=== PATIENT | male | born 1955 | race Caucasian/White ===

== ENCOUNTER 2021-02-25 17:56 | Emergency (ER) | payer OTHER, SELFPAY ==
[2021-02-25 17:58] VITALS: BP 180/72; PULSE 71; RESP 16; TEMP 37; O2SAT 94; BMI 36.2
--- NOTE | 2021-02-25 18:05 | ECG_ITS ---
APPROVED REPORT Exam: Resting ECG HR:71 bpm ECG Measurements Heart Rate 71 AXES WV 148 P 44 QRSd 92 QRS 21 QT 416 T 19 QTc 452 Conclusion Normal sinus rhythm Normal ECG Electronically signed by : Leonel Dias, 02/27/2021 08:54:05
--- NOTE | 2021-02-25 18:10 | HMH.EDGENADL ---
ED Disposition Clinical Impression: Thoracic back pain Qualifiers: Chronicity: acute Back pain laterality: midline Qualified Code(s): M54.6 - Pain in thoracic spine Disposition: Home, Self-Care Condition on Discharge: Fair Instructions: DI for Thoracic Back Pain Additional Instructions: Rest. Percocet for pain. Prednisone as prescribed. Use MiraLAX for constipation. Follow-up with primary care provider next week. Additional instructions for BACK PAIN: See your physician as soon as possible for further evaluation. Return immediately if back pain becomes intolerable, or if fever, numbness or weakness of your legs, loss of control of your bowels or bladder. Prescriptions: Oxycodone HCl/Acetaminophen [Percocet 5/325mg tablet] 1 tab PO Q6HP PRN #10 tab PRN Reason: Moderate To Severe Pain Prescription Printed polyethylene glycoL 3350 [Miralax 17gm Packet] 17 gm PO DAILY #5 packet Prescription Printed predniSONE [Prednisone 20mg Tab] 20 mg PO BID #10 tab Prescription Printed Referrals: Provider,Referral, [Primary Care Provider] - - Critical Care Critical Care Time: No Attestation: On 02/25/21, the high probability of a clinically significant, sudden or life threatening deterioration of the following system(s) required my full and direct attention, intervention and personal management. The time I documented below is in addition to time spent performing reported procedures but includes the following listed in this critical care notation. Medical Decision Making - Hrei Inquiry Pt receiving controlled substance: Yes Heri was queried for this patient: Yes Risks and benefits of using a controlled substance: were discussed with pt by me Vital Signs: 02/25/21 17:58 02/25/21 19:31 Temperature 98.6 F Temperature Source Oral Pulse Rate 58 L Pulse Rate [Right] 71 Respiratory Rate 16 20 Blood Pressure 159/70 H Blood Pressure [Right Arm] 180/72 H Blood Pressure Mean 99 Blood Pressure Mean [Right Arm] 108 Blood Pressure Source [Right Arm] Automatic Cuff Blood Pressure Position [Right Arm] Sitting 02 Sat by Pulse Oximetry 94 L 92 L Oxygen Delivery Method Room Air Room Air - Lab Data Lab Results 02/25/21 18:15: WBC 13.2 H, RBC 4.85, Hgb 14.8, Hct 42.4, MCV 87.3, MCH 30.5, MCHC 34.9, RDW 12.9, Plt Count 269, MPV 9.0, Neut % (Auto) 67.1, Lymph % (Auto) 20.1, [place] % (Auto) 8.6, Eos % (Auto) 3.5, Baso % (Auto) 0.7, Neut # (Auto) 8.8 H, Lymph # (Auto) 2.6, [place] # (Auto) 1.1 H, Eos # (Auto) 0.5 H, Baso # (Auto) 0.1 02/25/21 18:15: Sodium 138, Potassium 3.8, Chloride 102, Carbon Dioxide 27, Anion Gap 12.8, BUN 17, Creatinine 1.00, Estimated Creat Clear 123, Estimated GFR 75, Est GFR ( Amer) 91, Glucose 128 H, Calcium 9.6, Total Bilirubin 0.5, AST 27, ALT 27, Alkaline Phosphatase 70, Troponin I < 0.01, Total Protein 7.3, Albumin 4.4, Globulin 2.9, Albumin/Globulin Ratio 1.5 02/25/21 18:15: Lipase 342 H Result diagrams: 02/25/21 18:15 02/25/21 18:15 Orders (Tests/Meds): ED MEDICATIONS Generic Name Dose Route Start Last Admin Trade Name Freq PRN Reason Stop Dose Admin Hydromorphone HCl 1 mg 02/25/21 19:56 Hydromorphone 2mg/Ml Syringe IV 02/25/21 19:57 ONCE ONE Discontinued Medications Generic Name Dose Route Start Last Admin Trade Name Freq PRN Reason Stop Dose Admin Morphine Sulfate 4 mg 02/25/21 18:28 02/25/21 18:36 Morphine 4mg/Ml Syringe IV 02/25/21 18:29 4 mg ONCE ONE Administration Ondansetron HCl 4 mg 02/25/21 18:28 02/25/21 18:36 Ondansetron 4mg/2ml Vial IV 02/25/21 18:29 4 mg ONCE ONE Administration ORDERS Category Date Time Status Troponin I Q3H Lab 02/25/21 21:30 Ordered Troponin I Q3H Lab 02/26/21 00:30 Ordered - ECG Data Tracing #1 EKG interpreted by Julius Edwards MD: Rhythm: sinus Rate: 71 [place]: normal Ectopy: none Conduction: normal ST Segment Changes: none T Wave Changes: none
--- NOTE | 2021-02-25 18:25 | CT_ITS ---
PROCEDURE INFORMATION: Exam: CT Thoracic Spine Without Contrast Exam date and time: 02/25/2021 6:25 PM Age: 65 years old Clinical indication: Pain in thoracic spine; Other: --; Patient HX: Back pain for 4 days with injury TECHNIQUE: Imaging protocol: Computed tomography images of the thoracic spine without contrast. Radiation optimization: All CT scans at this facility use at least one of these dose optimization techniques: automated exposure control; mA and/or kV adjustment per patient size (includes targeted exams where dose is matched to clinical indication); or iterative reconstruction. COMPARISON: No relevant prior studies available. FINDINGS: Vertebrae: No acute fracture or malalignment. Discs/Spinal canal/Neural foramina: C5-C6 severe degenerative disc disease, with disc space loss, endplate sclerosis, irregularity, and osteophyte formation. Multilevel thoracic spine degenerative disc disease, manifest by mild disc space narrowing, vacuum disc phenomenon, and osteophyte formation. Soft tissues: Unremarkable. Vasculature: Atherosclerotic vascular disease. IMPRESSION: No acute fracture or malalignment.
--- NOTE | 2021-02-25 18:27 | XR_ITS ---
PROCEDURE INFORMATION: Exam: XR Chest Exam date and time: 02/25/2021 6:27 PM Age: 65 years old Clinical indication: Other: Indegestion; Patient HX: Indigestion, smoker, no SX; Additional info: Pain TECHNIQUE: Imaging protocol: XR of the chest. Views: 2 views. COMPARISON: CR CXR2V XR chest 2V 09/24/2018 8:03 PM FINDINGS: Lungs: Lungs are hyperexpanded, compatible chronic obstructive pulmonary physiologic changes. Pleural spaces: Unremarkable. No pleural effusion. No pneumothorax. Heart/Mediastinum: Normal. Bones/joints: Multilevel thoracic spine degenerative disc space narrowing and osteophyte formation. IMPRESSION: No acute cardiopulmonary abnormality.
[2021-02-25 18:36] LABS: Basophils # 0.1 K/mm3 (0-0.2); Basophils % 0.7 % (0.1-2.0); Eosinophils # 0.5 K/mm3 (0.0-0.4); Eosinophils % 3.5 % (0.1-12.0); Hematocrit 42.4 % (42.0-52.0); Hemoglobin 14.8 g/dL (14.1-18.0); Lymphocytes # 2.6 K/mm3 (0.7-4.5); Lymphocytes % 20.1 % (10-50); Mean Corpuscular HGB Conc 34.9 g/dL (31.8-35.4); Mean Corpuscular Hemoglobin 30.5 pg (27.0-31.2); Mean Corpuscular Volume 87.3 fl (80-94); Monocytes # 1.1 K/mm3 (0.1-1.0); Monocytes % 8.6 % (1.7-9.3); Neutrophils # 8.8 K/mm3 (1.8-7.8); Neutrophils % 67.1 % (37.0-80.0); Platelet Count 269 K/mm3 (142-424); Red Blood Count 4.85 M/mm3 (4.60-6.20); Red Cell Distribution Width 12.9 % (11.5-17.5); White Blood Count 13.2 K/mm3 (4.8-10.8)
[2021-02-25 18:37] LABS: Chloride 102 mmol/L (98-107); Sodium 138 mmol/L (136-145)
[2021-02-25 18:38] LABS: Potassium 3.8 mmoL/L (3.5-5.1)
[2021-02-25 18:40] LABS: Alanine Aminotransferase 27 U/L (12-78); Albumin Level 4.4 g/dl (3.5-5.0); Albumin/Globulin Ratio 1.5 (1.1-1.8); Alkaline Phosphatase 70 U/L (38-126); Anion Gap 12.8 mEq/L (5-15); Aspartate Amino Transferase 27 U/L (17-59); Bilirubin,Total 0.5 mg/dl (0.2-1.3); Blood Urea Nitrogen 17 mg/dl (9-20); Carbon Dioxide 27 mmol/L (22.0-30.0); Creatinine Clearance Estimated 123 mL/min (50-200); Estimated Glomerular Filt Rate 75 ml/min (>60); GFR (African American) 91 ML/MIN (>60); Globulin 2.9 g/dL (1.3-3.2); Lipase 342 U/L (23-300); Total Protein,Serum 7.3 g/dl (6.3-8.2)
[2021-02-25 18:41] LABS: Calcium 9.6 mg/dl (8.4-10.2); Glucose 128 mg/dl (74-100)
--- NOTE | 2021-02-25 18:46 | PC.NURSE ---
PT GONE TO CT
--- NOTE | 2021-02-25 18:56 | CT_ITS ---
PROCEDURE INFORMATION: Exam: CT Abdomen And Pelvis Without Contrast Exam date and time: 02/25/2021 6:56 PM Age: 65 years old Clinical indication: Abnormal findings; Abnormal lab test; Elevated lipase; Prior surgery; Surgery date: 6+ months; Surgery type: Gallbladder; Patient HX: Elevated lipase TECHNIQUE: Imaging protocol: Computed tomography of the abdomen and pelvis without contrast. Radiation optimization: All CT scans at this facility use at least one of these dose optimization techniques: automated exposure control; mA and/or kV adjustment per patient size (includes targeted exams where dose is matched to clinical indication); or iterative reconstruction. COMPARISON: No relevant prior studies available. FINDINGS: Liver: Mild hepatomegaly. Gallbladder and bile ducts: Gallbladder is surgically absent. Pancreas: Normal. Spleen: Normal. Adrenal glands: Normal. No mass. Kidneys and ureters: Simple left posterior midpole renal cyst. Left nephrolithiasis. Stomach and bowel: Colonic diverticulosis. Moderate amount of stool throughout the colon, suggesting constipation. No obstruction. Appendix: No evidence of appendicitis. Intraperitoneal space: Unremarkable. No free air. No significant fluid collection. Vasculature: Unremarkable. No abdominal aortic aneurysm. Lymph nodes: Unremarkable. No enlarged lymph nodes. Urinary bladder: Unremarkable as visualized. Reproductive: Unremarkable as visualized. Bones/joints: Mild degenerative changes of the hips and sacroiliac joints. Multilevel thoracolumbar spine degenerative disc space narrowing and osteophyte formation. Soft tissues: Normal. IMPRESSION: Moderate amount of stool throughout the colon, suggesting constipation. No obstruction. COMMENTS: Consistent with the [employer]'s Incidental Findings Committee white paper (J Am Gayla Radiol 2018): Any incidental renal lesion less than 1 cm or classified as too small to characterize, or any incidental cystic renal lesion characterized as simple-appearing, is likely benign. No follow-up imaging is recommended for these lesions per consensus recommendations based on imaging criteria.
--- NOTE | 2021-02-25 18:59 | PC.NURSE ---
Rad called and advised pt did not want the CT scan with contrast but was willing to have the CT without. Notified
[2021-02-25 19:01] LABS: Troponin I < 0.01 ng/ml (0.00-0.034)
[2021-02-25 19:31] VITALS: BP 159/70; PULSE 58; RESP 20; O2SAT 92
[2021-02-25 20:01] VITALS: BP 158/80; PULSE 54; RESP 15; TEMP 36.6; O2SAT 98
--- NOTE | 2021-02-26 10:08 | PC.NURSE ---
[facility] CALLED ASKING FOR A ESCRIBE RX TO BE RESENT TO THEM DUE TO THE ORIGINAL SCRIPT BEING PRINTED OFF AND SIGNED BY [facility] ER DOCTOR JENNY. THEY STATED THEY CAN NO LONGER TAKE PRINTED IN HAND NARCOTIC RX AND IT HAS TO BE ESCRIBED. SPOKE WITH GERRI CASE, AND SHE IS LOOKING INTO THIS SITUATION.
== END 2021-02-25 20:06 | disposition home or self-care (01) ==
PROVIDERS: Emergency Provider Emergency Medicine
DX: M54.6 Pain in thoracic spine (principal); I10 Essential (primary) hypertension; F17.210 Nicotine dependence, cigarettes, uncomplicated
CPT/HCPCS: 71046; 72128; 74176; 80053; 83690; 84484; 85025; 93005; 96374; 96375; 99282; J2405

== ENCOUNTER 2022-11-06 11:35 | Emergency (ER) | payer OTHER, SELFPAY ==
[2022-11-06] VITALS (9 sets, daily range): BP systolic 145–209; BP diastolic 66–93; PULSE 48–59; RESP 14–19; TEMP 36.8–37; O2SAT 93–99; BMI 31.9
[2022-11-06 12:06] LABS: Basophils # 0.1 K/mm3 (0-0.2); Basophils % 0.9 % (0.1-2.0); Eosinophils # 0.3 K/mm3 (0.0-0.4); Eosinophils % 2.3 % (0.1-12.0); Hemoglobin 15.5 g/dL (14.1-18.0); Lymphocytes # 1.7 K/mm3 (0.7-4.5); Lymphocytes % 13.6 % (10-50); Mean Corpuscular HGB Conc 34.5 g/dL (31.8-35.4); Mean Corpuscular Hemoglobin 31.2 pg (27.0-31.2); Mean Corpuscular Volume 90.4 fl (80-94); Mean Platelet Volume 9.3 fl (7.4-10.4); Monocytes # 0.7 K/mm3 (0.1-1.0); Monocytes % 5.7 % (1.7-9.3); Neutrophils # 9.9 K/mm3 (1.8-7.8); Neutrophils % 77.6 % (37.0-80.0); Platelet Count 262 K/mm3 (142-424); Red Blood Count 4.98 M/mm3 (4.60-6.20); Red Cell Distribution Width 13.6 % (11.5-17.5); White Blood Count 12.8 K/mm3 (4.8-10.8)
--- NOTE | 2022-11-06 12:08 | ECG_ITS ---
APPROVED REPORT Exam: Resting ECG HR:53 bpm ECG Measurements Heart Rate 53 AXES [place] 146 P 34 QRSd 96 QRS 71 QT 472 T 31 QTc 455 Conclusion SINUS BRADYCARDIA BORDERLINE ECG UNCONFIRMED REPORT Electronically signed by : Leonel Dias MD 11/06/2022 19:45:17
[2022-11-06 12:11] LABS: Alanine Aminotransferase 31 U/L (12-78); Albumin Level 4.2 g/dl (3.5-5.0); Albumin/Globulin Ratio 1.6 (1.1-1.8); Alkaline Phosphatase 53 U/L (38-126); Anion Gap 6.7 mEq/L (5-15); Aspartate Amino Transferase 33 U/L (17-59); Bilirubin,Total 0.9 mg/dl (0.2-1.3); Blood Urea Nitrogen 13 mg/dl (9-20); Calcium 8.7 mg/dl (8.4-10.2); Carbon Dioxide 32 mmol/L (22.0-30.0); Chloride 106 mmol/L (98-107); Creatinine Clearance Estimated 111 mL/min (50-200); Estimated Glomerular Filt Rate 75 ml/min (>60); GFR (African American) 90 ML/MIN (>60); Globulin 2.7 g/dL (1.3-3.2); Glucose 137 mg/dl (74-100); Potassium 3.7 mmoL/L (3.5-5.1); Sodium 141 mmol/L (136-145); Total Protein,Serum 6.9 g/dl (6.3-8.2)
[2022-11-06 12:25] LABS: Troponin I < 0.01 ng/ml (0.00-0.034)
--- NOTE | 2022-11-06 12:36 | HMH.EDGENADL ---
Discharge Plan Disposition Patient Disposition: Home, Self-Care Condition: Good Prescriptions Prescriptions: No Action polyethylene glycol 3350 17 GM powder in packet 17 gm PO DAILY Qty: 5 0RF prednisone 20 MG tablet 20 mg PO BID Qty: 10 0RF oxycodone-acetaminophen 1 EACH tablet 1 tab PO Q6HP PRN (Reason: Moderate To Severe Pain) Qty: 10 0RF Referrals Follow up/Referrals: Provider,Referral, MD [Primary Care Provider] - See instructions Activity Restrictions/Add. Instructions Additional Instructions/Restrictions: You were evaluated in the emergency department today. At this time, we recommend continuing to take your medications at home as prescribed. Please take your hydrochlorothiazide every day as prescribed. Call your primary care provider to let them know that you were seen here. Let them know about your blood pressure readings, as they may want to make further medication adjustments. Return to the emergency department for any new or worsening symptoms or for systolic blood pressures that sustained over 200. Clinical Impressions Clinical Impression: Accelerated hypertension Instructions Patient Instructions: DI for High Blood Pressure Discharge ED Provider: Fanny Hughes General Adult HPI General Chief complaint: Recheck/Abnormal Lab/Rx Stated complaint: High BP Time Seen by Provider: 11/06/22 11:42 Mode of Arrival: Ambulatory Source of Information: Patient Limitations: No Limitations Description of Symptoms (Recalled from ER Triage Doc. by RN): PT STATES HIS BLOOD PRESSURE HAS BEEN ELEVATED FOR 3 DAYS, STATES HE HAS BEEN UNDER INCREASED STRESS AND HAS BEEN FEELING MORE TIRED AND RUNDOWN THAN NORMAL History of Present Illness HPI narrative: This patient is a 67-year-old male with a history of accelerated hypertension presented to the emergency department for evaluation with concern for high blood pressure readings at home. He states that he first noticed it a few days ago, so he has been taking it regularly to keep track of it. He states that today, he had a pressure of 225 systolic at home, so he decided to come to the emergency department for evaluation. He denies any associated symptoms, but he notes that his right upper extremity was numb when he woke up today. He states that he believes that he slept on it wrong, as the symptoms resolved after he got up. He takes hydrochlorothiazide 25 mg daily as well as metoprolol 50 mg twice daily and losartan 100 mg daily. He states that he has been compliant with these. Today, he had to take his clonidine 0.1 mg as needed medication twice. He denies any headaches, vision changes, unilateral weakness, chest pain, back pain, abdominal pain, or other concerns. [facility] [place] Related Data Previous Rx's Medication Instructions Recorded oxycodone-acetaminophen 5 mg-325 1 tab PO Q6HP PRN Moderate To 02/25/21 mg tablet Severe Pain #10 tabs polyethylene glycol 3350 17 gram 17 gm PO DAILY #5 packets 02/25/21 oral powder packet prednisone 20 mg tablet 20 mg PO BID #10 tabs 02/25/21 Allergies Allergy/AdvReac Type Severity Reaction Status Date / Time INGREDIENT: NO KNOWN - NO Allergy Unknown Uncoded 09/11/17 15:07 KNOWN DRUG [facility]ERGY [facility] Disclaimer: The information contained in this section may have been updated after the patient was seen, as this information can be updated by other users. Social History Smoking Status: Current every day smoker alcohol intake: never current occupational status: retired Travel in the last 8 weeks: None ROS Obtained: Yes All systems reviewed & no additional complaints except as documented 14 point review of systems obtained and negative except as mentioned in HPI. Physical Exam General General appearance: alert and in no apparent distress Head Head exam: atraumatic and normocephalic Eye Eye exam: Present norm
--- NOTE | 2022-11-06 13:40 | PC.NURSE ---
Rounded on patient, SO at BS. no other needs at this time. Aware that we are waiting on results. Call light within reach
--- NOTE | 2022-11-06 14:59 | PC.NURSE ---
Rounded on patient, patient up to restroom without complications. Pt also given a vikas grace. SO at BS, no other needs at this time. Aware that they are waiting on 2nd troponin to be drawn.
--- NOTE | 2022-11-06 15:11 | PC.NURSE ---
2nd Troponin sent to lab. Pt hooked back up to monitor. Call light within reach, lights turned out, SO at BS
--- NOTE | 2022-11-06 15:13 | PC.NURSE ---
ROUNDED ON PT. RESTING IN BED. AT BEDSIDE. CALL LIGHT WITHIN REACH. NO QUESTIONS OR CONCERNS VOICED AT THIS TIME.
[2022-11-06 15:52] LABS: Troponin I < 0.01 ng/ml (0.00-0.034)
== END 2022-11-06 16:13 | disposition home or self-care (01) ==
PROVIDERS: Emergency Provider Emergency Medicine
DX: I16.0 Hypertensive urgency (principal); I10 Essential (primary) hypertension; F17.210 Nicotine dependence, cigarettes, uncomplicated
CPT/HCPCS: 80053; 84484; 85025; 93005; 99285

== ENCOUNTER 2022-11-09 16:52 | Emergency (ER) | payer OTHER, SELFPAY ==
[2022-11-09] VITALS (12 sets, daily range): BP systolic 147–216; BP diastolic 72–105; PULSE 56–67; RESP 17–19; TEMP 36.6–36.9; O2SAT 96–99; BMI 31.9
--- NOTE | 2022-11-09 17:09 | XR_ITS ---
PROCEDURE INFORMATION: Exam: XR Chest Exam date and time: 11/09/2022 5:37 PM Age: 67 years old Clinical indication: Other: High blood pressure TECHNIQUE: Imaging protocol: Radiologic exam of the chest. Views: 1 view. COMPARISON: CR XR CHEST 2V 02/25/2021 6:35 PM FINDINGS: Lungs: Unremarkable. No consolidation. Pleural spaces: Unremarkable. No pleural effusion. No pneumothorax. Heart/Mediastinum: Unremarkable. No cardiomegaly. Bones/joints: Unremarkable. IMPRESSION: No acute findings.
--- NOTE | 2022-11-09 17:17 | ECG_ITS ---
APPROVED REPORT Exam: Resting ECG HR:54 bpm ECG Measurements Heart Rate 54 AXES CO 160 P 39 QRSd 98 QRS -3 QT 449 T 26 QTc 435 Conclusion SINUS BRADYCARDIA BORDERLINE ECG UNCONFIRMED REPORT Electronically signed by : Leonel Dias MD 11/10/2022 08:57:06
[2022-11-09 17:45] LABS: Chloride 97 mmol/L (98-107); Potassium 3.7 mmoL/L (3.5-5.1); Sodium 141 mmol/L (136-145)
[2022-11-09 17:48] LABS: Alanine Aminotransferase 30 U/L (12-78); Albumin Level 4.8 g/dl (3.5-5.0); Albumin/Globulin Ratio 1.3 (1.1-1.8); Alkaline Phosphatase 60 U/L (38-126); Anion Gap 14.7 mEq/L (5-15); Aspartate Amino Transferase 32 U/L (17-59); Bilirubin,Total 0.7 mg/dl (0.2-1.3); Blood Urea Nitrogen 22 mg/dl (9-20); Calcium 10.4 mg/dl (8.4-10.2); Carbon Dioxide 33 mmol/L (22.0-30.0); Creatinine Clearance Estimated 93 mL/min (50-200); Estimated Glomerular Filt Rate 60 ml/min (>60); GFR (African American) 73 ML/MIN (>60); Globulin 3.6 g/dL (1.3-3.2); Glucose 130 mg/dl (74-100); Total Protein,Serum 8.4 g/dl (6.3-8.2)
[2022-11-09 17:57] LABS: Basophils # 0.2 K/mm3 (0-0.2); Basophils % 1.4 % (0.1-2.0); Eosinophils # 0.4 K/mm3 (0.0-0.4); Eosinophils % 2.6 % (0.1-12.0); Hematocrit 51.4 % (42.0-52.0); Hemoglobin 17.3 g/dL (14.1-18.0); Lymphocytes # 3.2 K/mm3 (0.7-4.5); Lymphocytes % 22.1 % (10-50); Mean Corpuscular HGB Conc 33.6 g/dL (31.8-35.4); Mean Corpuscular Hemoglobin 30.9 pg (27.0-31.2); Mean Platelet Volume 9.2 fl (7.4-10.4); Monocytes # 1.2 K/mm3 (0.1-1.0); Monocytes % 8.6 % (1.7-9.3); Neutrophils # 9.3 K/mm3 (1.8-7.8); Neutrophils % 65.3 % (37.0-80.0); Red Blood Count 5.59 M/mm3 (4.60-6.20); Red Cell Distribution Width 13.5 % (11.5-17.5); White Blood Count 14.3 K/mm3 (4.8-10.8)
--- NOTE | 2022-11-09 18:05 | HMH.EDGENADL ---
Discharge Plan Disposition Patient Disposition: Home, Self-Care Condition: Good Chief Complaint: Chest Pain Referrals Follow up/Referrals: Provider,Referral, MD [Primary Care Provider] - See instructions Activity Restrictions/Add. Instructions Additional Instructions/Restrictions: Call your provider at the [facility] tomorrow to obtain further care for blood pressure control, adjustment of medications. Clinical Impressions Clinical Impression: Hypertension Instructions Patient Instructions: DI for High Blood Pressure Discharge ED Provider: Julius Edwards General Adult HPI General Chief complaint: Chest Pain Stated complaint: poss HBP, sent by Anabel Jose [place] physician Time Seen by Provider: 11/09/22 18:10 Mode of Arrival: Ambulatory Source of Information: Patient Limitations: No Limitations Description of Symptoms (Recalled from ER Triage Doc. by RN): 67 M presents with chronic hypertension, sent from his PCP at the [facility]. Patient reports he was seen here Sunday for hypertension and sent home to f/u with PCP. Patient becomes severely anxious and scared when his BP rises and it causes it to rise more. Patient denies headache, dizziness, blurred vision, chest pain, SOA. NAD on arrival. History of Present Illness HPI narrative: The patient states that he was sent here by his caretakers at the [facility]. He says that they called him today to set up an appointment and he told him that he was feeling crappy and says that they told him to come here for treatment. He was seen here in this emergency department on Sunday for high blood pressure. He says also that day that his right arm felt strange, weak and numb, but resolved. He says that he told him about this on the phone today at the [facility] and this prompted him to tell him to come in. Currently he says his right arm feels fine. He denies headache or difficulty with his vision. Denies any problems with speech or with confusion. Denies any chest pain or shortness of breath. No numbness or weakness of the arms or legs. He says that he drove himself to the hospital today. He says that the [place] scheduled him an appointment for December 05 or . His blood pressure has remained high. He says that he has clonidine at home that he takes for accelerated blood pressure greater than 180 systolic but did not take any today. He says that he took his usual blood pressure medications this morning. He did not bring his medications with him but he is previous chart indicates that he is on hydrochlorothiazide, losartan, and metoprolol. He indicates he has been compliant with all of these. Related Data Allergies Allergy/AdvReac Type Severity Reaction Status Date / Time No Known Allergies Allergy Verified 11/09/22 17:19 [facility] Disclaimer: The information contained in this section may have been updated after the patient was seen, as this information can be updated by other users. Social History (Updated 11/06/22 @ 17:50 by Fanny Hughes DO) Smoking Status: Former smoker alcohol intake: never current occupational status: retired Travel in the last 8 weeks: None ROS Obtained: Yes Systems reviewed as appropriate & no additional complaints except as documented Constitutional Constitutional: Denies fever(s) and Denies headache(s) ENT Ears, Nose, Mouth, and Throat: Denies headache(s), Denies nasal discharge and Denies sore throat Cardiovascular Cardiovascular: Denies chest pain Respiratory Respiratory: Denies shortness of breath and Denies cough Gastrointestinal Gastrointestingal: Denies abdominal pain, constipation, diarrhea or vomiting Genitourinary Male Genitourinary: Denies difficulty urinating and Denies flank pain Musculoskeletal Musculoskeletal: Reports numbness Neurologic Neurologic: Reports as per HPI, Reports focal weakness (States his right arm felt weird, numb and weak on Sunday.), Denies headache(s) and Reports numbness Physical Exam Gener
[2022-11-09 18:16] LABS: Troponin I < 0.01 ng/ml (0.00-0.034)
[2022-11-09 18:25] LABS: Platelet Count 329 K/mm3 (142-424)
--- NOTE | 2022-11-09 18:49 | CT_ITS ---
PROCEDURE INFORMATION: Exam: CT Head Without Contrast Exam date and time: 11/09/2022 7:38 PM Age: 67 years old Clinical indication: Other: Right arm was numb Sunday. ; Additional info: R arm numb Sunday, since resolved per patient. TECHNIQUE: Imaging protocol: Computed tomography of the head without contrast. Radiation optimization: All CT scans at this facility use at least one of these dose optimization techniques: automated exposure control; mA and/or kV adjustment per patient size (includes targeted exams where dose is matched to clinical indication); or iterative reconstruction. Other protocol: This patient has received 0 known CTs and 0 known cardiac nuclear medicine studies in the 12 months prior to the current study. COMPARISON: No relevant prior studies available. FINDINGS: Brain: Normal. No hemorrhage. Unremarkable white matter. No mass effect. Cerebral ventricles: No ventriculomegaly. Paranasal sinuses: Visualized sinuses are unremarkable. No fluid levels. Mastoid air cells: Visualized mastoid air cells are well aerated. Bones/joints: Unremarkable. No acute fracture. Soft tissues: Unremarkable. IMPRESSION: No acute intracranial abnormality.
--- NOTE | 2022-11-09 18:50 | PC.NURSE ---
RADIOLOGY NOTIFIED OF NEW CT ORDER
[2022-11-09 19:10] LABS: Ethyl Alcohol < 10 mg/dl (0-10)
[2022-11-09 21:12] LABS: Troponin I < 0.01 ng/ml (0.00-0.034)
== END 2022-11-09 20:28 | disposition home or self-care (01) ==
PROVIDERS: Emergency Provider Emergency Medicine
DX: I10 Essential (primary) hypertension (principal); Z87.891 Personal history of nicotine dependence
CPT/HCPCS: 70450; 71045; 80053; 84484; 85025; 93005; 96361; 96374; 99285